=== PATIENT | male | born 2000 | race Caucasian/White ===

== ENCOUNTER 2022-12-06 16:39 | Emergency (ER) | payer OTHER, SELFPAY ==
--- NOTE | ~2022-12-06 | CT_ITS ---
EXAMINATION: CT BRAIN W/O DATE: 12/06/2022 21:57 INDICATION: Transient vision loss. TECHNIQUE: Computed tomography (CT) of the head was performed without intravenous contrast. The dose- length product was 681.00 mGy-cm. Automated exposure control and iterative reconstruction technique w ere employed. COMPARISON: No prior studies for comparison. FINDINGS: Normal brain parenchymal volume for age. Normal bello-white differentiation. No acute intrac ranial hemorrhage, infarction, mass or mass effect. No ventriculomegaly or midline shift. Midline sagittal images demonstrate a normal corpus callosum, c raniovertebral junction and sella turcica. Basilar cisterns are patent. Paranasal sinuses and mastoids are pneumatized. No depressed skull fractures. IMPRESSION: 1. No acute intracranial abnormality. Reviewed, dictated and finalized at location A.
--- NOTE | ~2022-12-06 | CT_ITS ---
EXAMINATION: CTA brain carotid DATE: 12/06/2022 22:04 CDT INDICATION: Left arm numbness and weakness. Vision loss. TECHNIQUE: Computed tomographic angiography (CTA) of the head was performed with 100 mL Omnipaque-350 intravenous contrast. CTA of the neck was performed with intravenous contrast. The dose-length produ ct was 1212.75 mGy-cm. Maximum intensity projection and volume rendered 3D-reconstructions were creat ed by the technologist on a separate workstation. COMPARISON: CT brain dated 12/06/2022. FINDINGS: HEAD CTA: No significant stenosis, occlusion or aneurysm. The anterior communicating artery is present. NECK CTA: The aorta, common carotid, internal carotid and vertebral arteries are within normal limits . Vertebral arteries are codominant. No significant stenosis or dissection. Thyroid gland is unremark able. Lung apices are normal. There is 0% stenosis of the proximal right internal carotid artery relative to normal distal artery l umen diameter (NASCET criteria). There is 0% stenosis of the proximal left internal carotid artery re lative to normal distal artery lumen diameter. IMPRESSION: 1: No significant vascular abnormality of the neck or head. Reviewed, dictated and finalized at location A.
--- NOTE | ~2022-12-06 | XR_ITS ---
XR chest 2V DATE: 12/06/2022 17:20 INDICATION: Chest pressure TECHNIQUE: PA and lateral views COMPARISON: None FINDINGS: There is mild to moderate thoracic dextroscoliosis. Normal heart size. No hilar or mediastinal enlargement. No pulmonary infiltrate or consolidation, ple ural effusion or pulmonary vascular congestion or pneumothorax. IMPRESSION: Thoracic dextroscoliosis No active cardiac pulmonary disease Reviewed, dictated and finalized at location L.
--- NOTE | 2022-12-06 16:40 | ECG_ITS ---
Measurements Intervals [place] Rate: 87 P: 66 MA: 165 QRS: 60 QRSD: 94 T: 36 QT: 323 QTc: 390 Interpretive Statements SINUS RHYTHM NO PREVIOUS ECG AVAILABLE FOR COMPARISON Electronically Signed On 12-06-2022 18:38:47 CDT by José Miguel Henson M.D.
[2022-12-06 16:45] VITALS: BP 150/68; PULSE 89; RESP 20; TEMP 36.6; O2SAT 98
[2022-12-06 17:03] LABS: Eosinophils Absolute Auto 0.1 K/mm3 (0-0.3); Eosinophils Percent Auto 1.7 % (0-4.4); Hematocrit 42.4 % (42.0-52.0); Hemoglobin 14.5 g/dL (14.0-18.0); Immature Granulocyte Absolute 0.01 K/mm3 (0.00-0.031); Immature Granulocyte Percent A 0.2 % (0-0.5); Lymphocytes Absolute Auto 0.93 K/mm3 (0.9-3.2); Lymphocytes Percent Auto 22.9 % (18.3-44.2); Mean Corpuscular HGB Conc 34.2 g/dl (32-36); Mean Corpuscular Hemoglobin 31.5 pg (26-34); Mean Corpuscular Volume 92.2 fl (80-100); Mean Platelet Volume 9.7 fl (7.4-10.4); Monocytes Absolute Auto 0.3 K/mm3 (0.1-0.6); Monocytes Percent Auto 8.1 % (2.6-8.5); Neutrophils Absolute Auto 2.7 K/mm3 (1.3-6.7); Neutrophils Percent Auto 66.1 % (45.5-73.1); Platelet Count Result 297 k/mm3 (150-375); Red Cell Distribution Width 12.5 % (11.5-14.5); White Blood Count 4.1 K/mm3 (4.5-10.0)
[2022-12-06 17:12] LABS: INR 1.1; Partial Thromboplastin Time 26.7 SECONDS (22.3-36.8); Prothrombin Time 13.5 Seconds (11.1-14.7)
[2022-12-06 17:17] LABS: Alanine Aminotransferase 63 U/L (6-50); Alkaline Phosphatase 63 U/L (38-126); Anion Gap 8 mmol/L (8-16); Aspartate Amino Transferase 43 U/L (17-59); Bilirubin,Total 0.4 mg/dL (0.2-1.3); Blood Urea Nitrogen 9 mg/dL (9-20); Calcium 8.2 mg/dL (8.4-10.2); Carbon Dioxide 24 mmol/L (22-30); Chloride 107 mmol/L (98-107); Estimated CRCL calculation 141 ml/min; Estimated Glomerular Filt Rate > 60; Glucose 113 mg/dL (65-110); Lipase 77 U/L (23-300); Potassium 3.6 mmol/L (3.4-5.0); Sodium 139 mmol/L (137-145)
[2022-12-06 17:28] LABS: Troponin I < 0.012 ng/mL (0.000-0.034)
[2022-12-06 20:01] LABS: Troponin I < 0.012 ng/mL (0.000-0.034)
[2022-12-06 21:31] VITALS: PULSE 65
[2022-12-06 21:32] VITALS: BP 120/72; PULSE 62; RESP 20; O2SAT 98
--- NOTE | 2022-12-06 21:34 | ED.CHESTPAIN ---
HPI - Chest Pain General Chief Complaint: Chest Pain Stated Complaint: L chest pressure/fogginess in head Time Seen by Provider: 12/06/22 21:30 History of Present Illness HPI narrative: Patient is a 22-year-old male here for evaluation of a transient episode of binocular vision loss. Patient states that he was driving to work in his usual state of health when suddenly his vision in both eyes went completely dark. States that this lasted for a second before resolving without intervention. When his vision came back he noticed a stabbing sensation in the left side of his chest that has lasted since. Since the incident he has had brain fog, left-sided facial numbness and tingling, tingling in his left arm as well. He denies headaches, ringing in the ears, shortness of breath, nausea, vomiting or weakness in the arms. Mother in the room states that he does have a history of conversion disorder when he was a child thought secondary to trauma. Patient denies any acutely traumatic events recently. Related Data Allergies Allergy/AdvReac Type Severity Reaction Status Date / Time No Known Allergies Allergy Unverified 10/03/21 12:10 Review of Systems Review of Systems: Gen.: Denies fevers or chills Eyes: Denies eye pain or visual change ENT: Denies congestion Respiratory: Denies shortness of breath or cough CV: Denies chest pain or palpitations GI: Denies abdominal pain nausea, emesis or diarrhea denies burning, urgency, frequency or hematuria Musculoskeletal: Denies back pain or muscle pain Neuro: Reports numbness, tingling Skin: Denies rash Except as documented, all other systems reviewed and negative Exam Narrative: APPEARANCE: Well appearing, no pain in distress, well-nourished. Head: Normocephalic and atraumatic. EYES: PERRLA/EOMI, conjunctivae clear NOSE: No nasal drainage EARS: Ceruminosis. External ear normal in appearance THROAT: Oropharynx is clear. Mucous membranes are moist. NECK: Supple. No adenopathy, no masses. RESPIRATORY: Airway patent, respirations nonlabored. Clear to auscultation bilaterally, no rales, rhonchi, wheezing. CARDIOVASCULAR: Regular rate and rhythm without murmurs, rubs, or gallops. ABDOMINAL: Normoactive bowel sounds. Soft, nontender, nondistended. No rebound tenderness or guarding. MUSCULOSKELETAL: no tenderness to palpation along the chest wall. Extremities are warm and well-perfused. Moves all extremities well. No edema. NEURO: cranial nerves ii-xii intact. 5/5 strength in BLE and BUE. normal speech. SKIN: Skin is warm and dry. No rashes. PSYCHIATRIC: Normal affect/mood. Course Vital Signs Vital signs: Vital Signs Temperature 97.8 F 12/06/22 16:45 Pulse Rate 89 12/06/22 16:45 Respiratory Rate 20 12/06/22 16:45 Blood Pressure 150/68 H 12/06/22 16:45 Pulse Oximetry 98 12/06/22 16:45 Oxygen Delivery Room Air 12/06/22 16:45 Temperature 97.8 F 12/06/22 16:45 Pulse Rate 77 12/06/22 23:37 Respiratory Rate 16 12/06/22 23:37 Blood Pressure 136/66 12/06/22 23:37 Pulse Oximetry 98 12/06/22 23:37 Oxygen Delivery Room Air 12/06/22 16:45 MDM - Chest Pain MDM Narrative Medical decision making narrative: 22-year-old male here for evaluation of 1 second of binocular vision loss followed by some left-sided chest pain earlier today while he was driving. He is nontoxic in appearance and has normal vital signs, no deficits on exam. Eyes are grossly normal in appearance; patient did have a recent checkup with his eye doctor and that was reassuring. EKG is normal and troponin x3 are undetectable, history not consistent with ACS. Basic labs otherwise unremarkable. Head CT and CTA are normal. COVID and flu are negative. Considered broad range of diagnoses, patient is quite young and lacks risk factors for TIA, he does have a history of conversion disorder due to trauma, today's events may be sequela of that. Patient's mom is a retired ICU nurse, we discussed at
[2022-12-06 22:50] LABS: Troponin I < 0.012 ng/mL (0.000-0.034)
[2022-12-06 23:03] LABS: Influenza A QL RT-PCR Negative (Negative); Influenza B QL RT-PCR Negative (Negative); SARS-CoV-2 RNA PCR Negative (Negative)
[2022-12-06 23:37] VITALS: BP 136/66; PULSE 77; RESP 16; O2SAT 98
== END 2022-12-06 23:38 | disposition home or self-care (01) ==
PROVIDERS: Emergency Medicine; Emergency Provider Physician Assistant; PCP Family Medicine
DX: R40.4 Transient alteration of awareness (principal); Z20.822 Contact with and (suspected) exposure to COVID-19
CPT/HCPCS: 36415; 70450; 70496; 70498; 71046; 80053; 83690; 84484; 85025; 85610; 85730; 87636; 93005; 99284; Q9967